=== PATIENT | male | born 1970 | race Caucasian/White ===

== ENCOUNTER → 2021-01-26 | Outpatient (CLI) | payer OTHER | END | disposition home or self-care (01) | LOC: RAD 15:44 | PROVIDERS: ATTEND Family Medicine | DX: M50.322 Other cervical disc degeneration at C5-C6 level (principal); M48.02 Spinal stenosis, cervical region; M62.838 Other muscle spasm; G95.89 Other specified diseases of spinal cord | CPT/HCPCS: 72050 ==